=== PATIENT | female | born 2000 | race Caucasian/White ===

== ENCOUNTER 2018-06-28 14:06 | Emergency (ER) | payer BC ==
[~2018-06-28] VITALS: Ht 165.1 cm; Wt 104.8 kg
[~2018-06-28 14:06] MED LIST: ACET325UDC; AMOX1XR; AMOX250 PO; CEPH500 PO; CETI5 PO; IBUP800 PO; Percocet 5-3251 EACH PO; Protonix40 MG PO; SERT50 PO; SULTRIDS PO; Verotin-Gr Cap1 EACH PO
[2018-06-28 14:44] LABS: Source, Urine Clean Catch
[2018-06-28 14:51] LABS: Appearance, Urine Clear (Clear); Blood, Urine 2+ (Neg); Color, Urine Yellow (P-Yellow); Glucose Qualitative, Urine Neg (Neg); Ketones, Urine 4+ (Neg); Leukocyte Esterase, Urine 1+ (Neg); Nitrite, Urine Neg (Neg); Protein, Urine 3+ (Neg); Specific Gravity, Urine 1.015 (1.003-1.022); Urobilinogen, Urine 2+ (Normal)
[2018-06-28 14:56] LABS: BASOPHILS ABSOLUTE AUTO 0.04 K/mm3 (0.00-0.23); BASOPHILS PERCENT AUTO 1 % (0-2); EOSINOPHILS ABSOLUTE AUTO 0.15 K/mm3 (0.00-0.68); EOSINOPHILS PERCENT AUTO 2 % (0-6); Hematocrit 41.6 % (33.0-51.0); Hemoglobin 12.9 g/dL (11.5-16.0); IMMATURE GRAN ABSOLUTE AUTO 0.02 K/mm3 (0.00-0.10); IMMATURE GRAN PERCENT AUTO 0 % (0-1); LYMPHOCYTES ABSOLUTE AUTO 1.52 K/mm3 (0.84-5.20); LYMPHOCYTES PERCENT AUTO 18 % (21-46); MONOCYTES ABSOLUTE AUTO 0.58 K/mm3 (0.16-1.47); MONOCYTES PERCENT AUTO 7 % (4-13); Mean Corpuscular HGB 25.9 pg (26.0-34.0); Mean Corpuscular Volume 83 fL (80-100); Mean Platelet Volume 9.2 fL (9.1-12.4); NEUTROPHILS ABSOLUTE AUTO 6.21 K/mm3 (1.96-9.15); NEUTROPHILS PERCENT AUTO 73 % (41-73); Platelet Count 337 K/mm3 (150-400); RDW Coefficient Variation 14.3 % (11.7-14.2); RDW Standard Deviation 43.3 fL (35.1-46.3); Red Blood Cell Count 4.99 M/mm3 (3.80-5.20); White Blood Cell Count 8.52 K/mm3 (4.00-11.30)
[2018-06-28 14:58] LABS: Bilirubin, Urine 3+ (Neg)
[2018-06-28 14:59] LABS: Bacteria Mod /hpf; Squamous Epithelial Cells Few /hpf (Few)
[2018-06-28 15:22] LABS: Alanine Aminotransfer (ALT/SGP 428 U/L (12-78); Albumin/Globulin Ratio 0.9 (0.8-1.8); Alk Phos 474 U/L (50-136); Anion Gap 12 mmol/L (6-16); Aspartate Aminotrans (AST/SGOT 189 U/L (12-37); Bilirubin, Total 5.7 mg/dL (0.1-1.0); Blood Urea Nitrogen 12 mg/dL (8-24); Bun/Creatinine Ratio 18.3 (12.0-20.0); CO2, Blood 29 mmol/L (21-32); Calcium, Blood 9.3 mg/dL (8.5-10.1); Chloride, Blood 98 mmol/L (98-108); Creatinine, Blood 0.65 mg/dL (0.40-1.00); Globulin, Blood 4.7 g/dL (2.2-4.0); Glomerular Filtration Rate >60 (60-); Glucose, Blood 97 mg/dL (70-99); Potassium, Blood 3.3 mmol/L (3.5-5.5); Sodium, Blood 139 mmol/L (136-145); Total Protein, Blood 8.7 g/dL (6.4-8.2)
== END 2018-06-28 19:05 | disposition short-term general hospital (02) ==
LOC: ER 14:06
PROVIDERS: Emergency Medicine
DX: K80.51 Calculus of bile duct without cholangitis or cholecystitis with obstruction (principal); Z79.899 Other long term (current) drug therapy
CPT/HCPCS: 36415; 80053; 81001; 83690; 85025; 87086; 96361; 96374; 96375; 96376; 99284-25; J0780; J2405; J3010; J7030

== ENCOUNTER 2019-07-27 17:15 | Inpatient (IN) | payer BC ==
[~2019-07-27] VITALS: Ht 165.1 cm; Wt 104.0 kg
[2019-07-27 20:53] LABS: BASOPHILS ABSOLUTE AUTO 0.01 K/mm3 (0.00-0.23); BASOPHILS PERCENT AUTO 0 % (0-2); EOSINOPHILS ABSOLUTE AUTO 0.04 K/mm3 (0.00-0.68); EOSINOPHILS PERCENT AUTO 0 % (0-6); Hematocrit 33.6 % (33.0-51.0); Hemoglobin 10.9 g/dL (11.5-16.0); IMMATURE GRAN ABSOLUTE AUTO 0.03 K/mm3 (0.00-0.10); IMMATURE GRAN PERCENT AUTO 0 % (0-1); LYMPHOCYTES PERCENT AUTO 16 % (21-46); MONOCYTES ABSOLUTE AUTO 0.52 K/mm3 (0.16-1.47); MONOCYTES PERCENT AUTO 6 % (4-13); Mean Corpuscular HGB 29.2 pg (26.0-34.0); Mean Corpuscular HGB Conc 32.4 g/dL (31.5-36.5); Mean Corpuscular Volume 90 fL (80-100); Mean Platelet Volume 10.6 fL (9.1-12.4); NEUTROPHILS ABSOLUTE AUTO 7.06 K/mm3 (1.96-9.15); NEUTROPHILS PERCENT AUTO 78 % (41-73); Platelet Count 208 K/mm3 (150-400); RDW Coefficient Variation 15.3 % (11.7-14.2); RDW Standard Deviation 50.9 fL (35.1-46.3); Red Blood Cell Count 3.73 M/mm3 (3.80-5.20); White Blood Cell Count 9.06 K/mm3 (4.00-11.30)
--- NOTE | 2019-07-28 08:47 | NUR ---
POST HEMMORHAGE UPON INITIAL ASSESSMENT PT PASSED LARGE CLOT WHILE FUNDAL MASSAGE WAS BEING PERFORMED. FUNDUS WAS +1 FINGER ABOVE UMBILICUS. THIS FIRST COT WEIGHED 284 GRAMS. PT DENIED FEELINGS OF FATIGUE,DIZZINESS OR LIGHTHEADEDNESS. VS STABLE. PT REPORTED SHE FELT LIKE SHE NEEDED TO USE RESTROOM AND WANTED TO TAKE SHOWER. RN AND FIELD ARTILLERY CREWMEMBER ASSISTED PT TO SHOWER. WHILE PT IN SHOWER SHE PASSED ANOTHER CLOT. THIS CLOT WEIGHED 481. OLD GREEN KIDD PAD WEIGHED 121. NEW LINEN AND PADS PLACED DOWN AND PT BROUGHT BACK TO BED FOR MORE FUNDAL MASSAGE. PT RUBBED DOWN AGAIN AND PRODUCED ANOTHER FIST SIZE CLOT, THIS ONE WEIGHED 110. RN OUT TO CALL OLGA CARMONA CNM TO NOTIFY HER OF PT HEMMORHAGE. NEW ORDERS GIVEN TO RN TO GIVE 0.2 IM METHERGINE AND TO START PO METHERGINE 0.2 PO Q6 HOURS FOR BLEEDING. ORDERS PLACE IN COMPUTER. AFTER IM METHERGINE WAS GIVEN Q5 FUNDAL CHECKS WERE PERFORMED FOR 20 MINUTES. WITH FIRST FUNDAL MASSAGE UTERUS WAS FIRM AND -1 BELOW UMBILICUS WITH SCANT TRICKLE WITH INITIAL START OF RUB THEN STOPPED. WHITE PAD TAKEN AND WEIGHED. THIS WHITE PAD WEIGHED 43 GRAMS AND WHITE RADHA PAD WEIGHED 17 GRAMS. SECOND FUNDAL RUBBED PRODUCED NO CLOTS WITH A SCANT TRICKLE THAT STOPPED WITH RUBBING. NEW WHITE PAD WEIGHED, THIS PAD WEIGHED 41 GRAMS. ANGE HENRY CALLED IN BY PRIMARY RN TO HELP ASSESS BLEEDING. SECOND RN OKAY WITH PT FUNDAL HEIGHT AND BLEEDING AND STATES "BLEEDING LOOKS LIKE IT IS STARTIGN TO GET UNDER CONTROL". OF 919, ALL FUNDAL MASSGAGES PRODUCED NO BLEEDING. PT AWARE TO COMMUNICATE WITH RN IF SHE FEELS TRICKELING AGAIN OR HAS ANY MORE CLOTS. PT TOLD TO ASK FOR ASSITANCE WITH GETTING UP FOR THE MORNING TIME TO BE SAFE. PT CONT TO DENY ANY SIGNS/SYMPTOMS OF HYPOTENSION.
--- NOTE | 2019-07-28 09:50 | NUR ---
NO 2ND IV PLACED IN PT DUE TO BLEEDING BEING WELL CONTROLED WITH ORDERED IM 0.2MG OF METHERGINE, PT VITAL SIGNS STABLE AND PT NOT BEING SYMPTOMATIC (NO DIZZYNESS.LIGHTHEADEDNESS OR LETHARGY).
--- NOTE | 2019-07-28 10:13 | NUR ---
PT FUNDUS RUBBED DOWN AGAIN, NO BLEEDING. WHITE PAD WEIGHED IN AT 52 GRAMS. NEW PAD PLACED UNDER PT. PT CONT TO DENY ANY LIGHTHEADEDNESS, DIZZYNESS, FATIGUE, ETC. PT COLOR IS PINK, LIPS PINK AND PT REPORTS FEELING WARM WITH NO OTHER COMPLAINTS.
[2019-07-28 12:11] LABS: BASOPHILS ABSOLUTE AUTO 0.02 K/mm3 (0.00-0.23); BASOPHILS PERCENT AUTO 0 % (0-2); EOSINOPHILS ABSOLUTE AUTO 0.05 K/mm3 (0.00-0.68); EOSINOPHILS PERCENT AUTO 1 % (0-6); Hematocrit 31.6 % (33.0-51.0); Hemoglobin 10.3 g/dL (11.5-16.0); IMMATURE GRAN ABSOLUTE AUTO 0.03 K/mm3 (0.00-0.10); IMMATURE GRAN PERCENT AUTO 0 % (0-1); LYMPHOCYTES ABSOLUTE AUTO 1.66 K/mm3 (0.84-5.20); LYMPHOCYTES PERCENT AUTO 16 % (21-46); MONOCYTES ABSOLUTE AUTO 0.66 K/mm3 (0.16-1.47); MONOCYTES PERCENT AUTO 6 % (4-13); Mean Corpuscular HGB 29.2 pg (26.0-34.0); Mean Corpuscular HGB Conc 32.6 g/dL (31.5-36.5); Mean Corpuscular Volume 90 fL (80-100); Mean Platelet Volume 10.4 fL (9.1-12.4); NEUTROPHILS ABSOLUTE AUTO 8.02 K/mm3 (1.96-9.15); NEUTROPHILS PERCENT AUTO 77 % (41-73); Platelet Count 175 K/mm3 (150-400); RDW Coefficient Variation 15.1 % (11.7-14.2); RDW Standard Deviation 49.7 fL (35.1-46.3); Red Blood Cell Count 3.53 M/mm3 (3.80-5.20); White Blood Cell Count 10.44 K/mm3 (4.00-11.30)
--- NOTE | 2019-07-28 17:37 | NUR ---
PATIENT COMPLAINS OF FEELING LIGHT HEADED AND HOT. VITAL ARE STABLE AT THIS TIME. FUNDAL MASSAGE PRODUCED SM TRICKLE, FUNDUS FIRM.
--- NOTE | 2019-07-28 18:15 | NUR ---
PATIENT REASSESSED AFTER CONTINUOUS VS MONITORING. PATIENT STATES SHE FEELS BETTER.
[2019-07-29] MEDS ORDERED: IBUP800 PO (10:22)
[2019-07-29] MEDS ORDERED: PRENATAL TABLE1 EAC2 PO (10:23)
== END 2019-07-29 11:37 | disposition home or self-care (01) | DRG 807 ==
LOC: BC 17:15 → OBS 17:15 → BC 17:19 → OBS 20:16 → BC 20:18
PROVIDERS: ADMIT Nurse Practitioner Obstetrics & Gynecology
PROC: 10E0XZZ Delivery of Products of Conception, External Approach (ICD-10-PCS; principal; 2019-07-28)
PROC: 10907ZC Drainage of Amniotic Fluid, Therapeutic from Products of Conception, Via Natural or Artificial Opening (ICD-10-PCS; 2019-07-28)
PROC: 3E0R3BZ Introduction of Anesthetic Agent into Spinal Canal, Percutaneous Approach (ICD-10-PCS; 2019-07-28)
DX: O99.824 Streptococcus B carrier state complicating childbirth (principal); Z37.0 Single live birth; Z3A.39 39 weeks gestation of pregnancy; O99.344 Other mental disorders complicating childbirth; F32.9 Major depressive disorder, single episode, unspecified
CPT/HCPCS: 36415; 51702; 59025; 85025; J0290; J1885; J2210; J2590; J3010; J7030; J7120

== ENCOUNTER 2022-05-04 18:28 | Inpatient (IN) | payer BC ==
[~2022-05-04] VITALS: Ht 165.1 cm; Wt 78.5 kg
[~2022-05-04 18:28] MED LIST changes: +PRENATAL TABLE1 EAC2 PO
[2022-05-04 20:04] LABS: BASOPHILS ABSOLUTE AUTO 0.06 K/mm3 (0.00-0.23); BASOPHILS PERCENT AUTO 0 % (0-2); EOSINOPHILS ABSOLUTE AUTO 0.35 K/mm3 (0.00-0.68); EOSINOPHILS PERCENT AUTO 2 % (0-6); Hematocrit 37.5 % (33.0-51.0); Hemoglobin 12.3 g/dL (11.5-16.0); IMMATURE GRAN ABSOLUTE AUTO 0.06 K/mm3 (0.00-0.10); IMMATURE GRAN PERCENT AUTO 0 % (0-1); LYMPHOCYTES ABSOLUTE AUTO 3.88 K/mm3 (0.84-5.20); LYMPHOCYTES PERCENT AUTO 26 % (21-46); MONOCYTES ABSOLUTE AUTO 1.15 K/mm3 (0.16-1.47); MONOCYTES PERCENT AUTO 8 % (4-13); Mean Corpuscular HGB Conc 32.8 g/dL (31.5-36.5); Mean Corpuscular Volume 92 fL (80-100); Mean Platelet Volume 9.9 fL (9.1-12.4); NEUTROPHILS ABSOLUTE AUTO 9.46 K/mm3 (1.96-9.15); NEUTROPHILS PERCENT AUTO 63 % (41-73); Platelet Count 320 K/mm3 (150-400); RDW Coefficient Variation 13.2 % (11.7-14.2); RDW Standard Deviation 44.7 fL (35.1-46.3); White Blood Cell Count 14.96 K/mm3 (4.00-11.30)
[2022-05-04 20:30] LABS: Albumin/Globulin Ratio 1.2 (0.8-1.8); Bilirubin, Total 0.5 mg/dL (0.1-1.0); Bun/Creatinine Ratio 12.4 (12.0-20.0); Creatinine, Blood 0.89 mg/dL (0.40-1.00); Globulin, Blood 3.4 g/dL (2.2-4.0); Potassium, Blood 3.6 mmol/L (3.5-5.5); Total Protein, Blood 7.4 g/dL (6.4-8.2)
[2022-05-04 20:56] LABS: Source, Urine Clean Catch
[2022-05-04 20:58] LABS: Bilirubin, Urine Neg (Neg); Blood, Urine Neg (Neg); Glucose Qualitative, Urine Neg (Neg); Ketones, Urine 1+ (Neg); Leukocyte Esterase, Urine 2+ (Neg); Nitrite, Urine Pos (Neg); Protein, Urine 2+ (Neg); Urobilinogen, Urine 1+ (Normal)
[2022-05-04 21:05] LABS: Appearance, Urine Hazy (Clear); Color, Urine Yellow (P-Yellow)
[2022-05-04 21:19] LABS: Bacteria Many /hpf; Red Blood Cells, Urine 0-2 /hpf (0-2); Squamous Epithelial Cells Rare /hpf (Few); White Blood Cells, Urine TNTC /hpf (0-5)
[2022-05-05] MEDS ORDERED: CEPH500 PO (01:27)
[2022-05-05 01:29] LABS: Influenza A, PCR NEGATIVE (NEGATIVE); Influenza B, PCR NEGATIVE (NEGATIVE); Resp Syncytial Virus, PCR NEGATIVE (NEGATIVE); SARS-Cov-2 (COVID-19) PCR, MMC NEGATIVE (NEGATIVE)
[2022-05-05 02:13] LABS: Candida species (DNA Probe) Negative (NEGATIVE); G. vaginalis (DNA Probe) Negative (NEGATIVE); T. vaginalis (DNA Probe) Negative (NEGATIVE)
[2022-05-05 04:04] LABS: BASOPHILS ABSOLUTE AUTO 0.01 K/mm3 (0.00-0.23); BASOPHILS PERCENT AUTO 0 % (0-2); EOSINOPHILS ABSOLUTE AUTO 0.01 K/mm3 (0.00-0.68); EOSINOPHILS PERCENT AUTO 0 % (0-6); Hematocrit 28.7 % (33.0-51.0); Hemoglobin 9.3 g/dL (11.5-16.0); IMMATURE GRAN ABSOLUTE AUTO 0.05 K/mm3 (0.00-0.10); IMMATURE GRAN PERCENT AUTO 0 % (0-1); LYMPHOCYTES PERCENT AUTO 11 % (21-46); MONOCYTES ABSOLUTE AUTO 0.52 K/mm3 (0.16-1.47); MONOCYTES PERCENT AUTO 4 % (4-13); Mean Corpuscular HGB 30.1 pg (26.0-34.0); Mean Corpuscular HGB Conc 32.4 g/dL (31.5-36.5); Mean Corpuscular Volume 93 fL (80-100); Mean Platelet Volume 10.2 fL (9.1-12.4); NEUTROPHILS ABSOLUTE AUTO 10.13 K/mm3 (1.96-9.15); NEUTROPHILS PERCENT AUTO 84 % (41-73); Platelet Count 205 K/mm3 (150-400); RDW Coefficient Variation 13.3 % (11.7-14.2); RDW Standard Deviation 45.1 fL (35.1-46.3); Red Blood Cell Count 3.09 M/mm3 (3.80-5.20); White Blood Cell Count 12.02 K/mm3 (4.00-11.30)
[2022-05-05] MEDS ORDERED: DESV50 PO (07:23)
--- NOTE | 2022-05-05 07:32 | NUR ---
ARRIVAL TO ICU PT ARRIVED FROM OR VIA GURNEY. PT IS AWAKE AND ALERT. ABLE TO FOLLOW DIRECTIONS AND MOVE ALL EXTREMITIES SPONT. ABDOM INSCISIONS WITH DERMABOND X3. NO REDNESS OR DRAINING NOTED. ABD IS SOFT. TENDER. SR/ST 90s-100s. SBP 110's. DENIES N/V. PROVIDED ICE CHIPS AND TOLERATING WELL W/ NO NAUSEA. LR BOLUS INITIATED PER DR SANTANA. VERBAL ORDER. EDUCATED PT TO CALL FOR ASSISTANCE WHEN GETTING OOB. CALL LIGHT IN REACH.
[2022-05-05] MEDS ORDERED: Percocet 5-3251 EACH PO (08:14)
[2022-05-05] MEDS ORDERED: MOTRIN IB200 MG PO (08:16)
[2022-05-05 08:59] LABS: Hematocrit 28.3 % (33.0-51.0); Hemoglobin 9.1 g/dL (11.5-16.0)
--- NOTE | 2022-05-05 10:32 | NUR ---
DISCHARGE PT UP TO VOID AND WALK IN HALLWAY W/O DIZZINESS. VOIDED 200ML. TRACE BLOOD IN HAT. PT STATED PAIN IS 'MILD'. PT D/C AT 1020 VIA W/C. LEFT WITH D/C INSRTUCTIONS, BELONGINGS, AND HARD SCRIPT. PT DENIED N/V UPON LEAVING ROOM. IN HALLWAY PT VOMITTED BUT STATED SHE FELT BETTER AFTER. HELPED HER CLEAN UP AND SENT HER WITH EMESIS BAGS.
[2022-05-06 22:08] LABS: CHLAMYDIA TRACHOMATIS, NAA Negative (Negative)
== END 2022-05-05 10:05 | disposition home or self-care (01) | DRG 742 ==
LOC: ER 18:28 → ICUW 05-05 04:22
PROVIDERS: Physician Assistant; Student in an Organized Health Care Education/Training Program; ADMIT Obstetrics & Gynecology
PROC: 0UB04ZZ Excision of Right Ovary, Percutaneous Endoscopic Approach (ICD-10-PCS; principal; 2022-05-05 05:30)
DX: N83.201 Unspecified ovarian cyst, right side (principal); K66.1 Hemoperitoneum; Z98.890 Other specified postprocedural states; F32.A Depression, unspecified; Z79.899 Other long term (current) drug therapy; Z87.442 Personal history of urinary calculi; Z90.49 Acquired absence of other specified parts of digestive tract
CPT/HCPCS: 0241U; 36415; 71046; 71260; 74177; 80053; 81001; 81025; 83690; 84484; 85014; 85018; 85025; 85379; 86850; 86900; 86901; 86923; 87077; 87086; 87186; 87480; 87491; 87510; 87591; 87660; 88305; 96365; 96375; 99285-25; A9270; J0696; J1100; J1170; J1885; J2250; J2405; J2704; J2795; J3010; J7030; J7120; Q9967